=== PATIENT | female | born 1995 | race Caucasian/White ===

== ENCOUNTER 2023-09-26 15:45 | Emergency (ER) | payer SELFPAY | END 2023-09-26 17:02 | disposition home or self-care (01) | LOC: BURERS 15:45 | DX: J98.01 Acute bronchospasm (principal); J06.9 Acute upper respiratory infection, unspecified; F17.200 Nicotine dependence, unspecified, uncomplicated | CPT/HCPCS: 87081; 87430; 99283 ==